=== PATIENT | male | born 1990 | race Caucasian/White ===

== ENCOUNTER 2021-01-09 11:30 | Emergency (ER) | payer OTHER ==
[2021-01-09 15:07] LABS: Absolute Lymphocytes (CBC) 0.8 K/uL (0.7-4.9); Basophils % 0.4 % (0-1.3); Hematocrit 42.7 % (39.6-49.0); Lymphocytes % 6.6 % (15.3-44.8); MPV 9.6 fL (7.6-11.3); RBC Red Blood Cell Count 5.19 M/uL (4.33-5.43)
--- NOTE | 2021-01-09 15:17 | RAD REPORT ---
EXAM DESCRIPTION: RAD - Chest Single View - 01/09/2021 2:35 pm CLINICAL HISTORY: CHEST PAIN Chest pain. COMPARISON: Chest Single View dated 04/26/2020; CHEST SINGLE VIEW dated 10/10/2013; CHEST SINGLE VIEW d ated 06/26/2013No comparisons FINDINGS: Portable technique limits examination quality. The lungs are grossly clear. The heart is normal in size. No displaced fractures. IMPRESSION: No acute intrathoracic process suspected.
[2021-01-09 15:27] LABS: ALT/SGPT 189 U/L (12-78); AST/SGOT 81 U/L (15-37); Albumin 4.1 g/dL (3.4-5.0); Alkaline Phosphatase 220 U/L (45-117); BUN Blood Urea Nitrogen 12 mg/dL (7-18); Bicarbonate 26 mmol/L (21-32); Bilirubin Direct 0.5 mg/dL (0-0.2); Glucose Level 86 mg/dL (74-106); Magnesium 2.1 mg/dL (1.8-2.4); NT PRO-BNP 52 pg/mL (<125); Potassium 3.8 mmol/L (3.5-5.1); Protein, Total 9.2 g/dL (6.4-8.2); Sodium Level 137 mmol/L (136-145); Troponin (Emerg Dept Use Only) < 0.02 ng/mL (0.0-0.045)
[2021-01-09 16:07] LABS: Blood Morphology Comment NOT SEEN (NOT SEEN); Platelet Estimate ADEQ; White Blood Cell Scan OK (OK)
[2021-01-09] MEDS ORDERED: CEFTRIAXONE/SWI 1gm 1 GM/10 ML SYR ONE (16:19)
[2021-01-09] MEDS ORDERED: LEVALBUTEROL 1.25 MG/3 ML NEB ONE (16:19)
[2021-01-09] MEDS ORDERED: IPRATROPIUM BROM 0.5MG/2.5ML ONE (16:19)
[2021-01-09] MEDS ORDERED: METHYLPREDNISOLONE 125 MG INJ ONE (16:19)
--- NOTE | 2021-01-09 16:21 | RAD REPORT ---
EXAM DESCRIPTION: CT - Chest For Pe Angio - 01/09/2021 4:04 pm CLINICAL HISTORY: Chest pain. Dyspnea;Cough COMPARISON: No comparisons TECHNIQUE: CT angiogram of the pulmonary arteries was performed with MIP. All CT scans are performed using dose optimization technique as appropriate and may include automated exposure control or mA/KV adjustment according to patient size. FINDINGS: No evidence of pulmonary thromboembolism. No acute aortic finding demonstrated. Mild ground-glass opacities both lungs likely infection related. No significant pericardial or pleural fluid. No concerning bony finding. IMPRESSION: No evidence of pulmonary thromboembolism. Mild viral pneumonitis pattern suspected.
--- NOTE | 2021-01-09 16:21 | ER ---
Nurse's Notes [facility] Name: Shahid Ybarra Age: 30 yrs Sex: Male : 1990 Arrival Date: 01/09/2021 Time: 11:31 Bed 15 Private MD: Diagnosis: Essential (primary) hypertension;Chest pain, unspecified;Bronchitis, not specified as acute or chronic;Acute upper respiratory infection, unspecified Presentation: 01/09 11:36 Chief complaint: Patient states: SOB and cough for 1 week. Mid chest pressure for 2 ss days intermittent. No fever, but feels sweaty and hot. Covid test negative. Coronavirus screen: Client denies travel out of the [place] in the last 14 days. chills, cough unrelated to allergies, difficulty breathing, fatigue, fever, headache, muscle pain, shaking with chills, shortness of breath, Client presents with at least one sign or symptom that may indicate coronavirus-19. Standard/surgical mask placed on the client. Ebola Screen: Patient denies travel to an Ebola-affected area in the 21 days before illness onset. Initial Sepsis Screen:. Initial Sepsis Screen: Does the patient meet any 2 criteria? No. Patient's initial sepsis screen is negative. Does the patient have a suspected source of infection? Yes: Productive cough/pneumonia. Risk Assessment: Do you want to hurt yourself or someone else? Patient reports no desire to harm self or others. Onset of symptoms was January 03, 2021. 11:36 Method Of Arrival: Ambulatory ss 11:36 Acuity: MARCIO 2 ss Historical: - Allergies: 11:41 No Known Drug Allergies; ss - PMHx: 11:41 Hypertension; ss - PSHx: 11:41 None; ss - Immunization history:: Flu vaccine is not up to date. - Social history:: Smoking status: Reported history of juuling and/or vaping. Patient denies any tobacco usage or history of. Screenin:28 Abuse screen: Denies threats or abuse. Denies injuries from another. Nutritional ss screening: No deficits noted. Tuberculosis screening: Never had TB. Fall Risk None identified. Assessment: 14:15 General: Behavior is calm, cooperative. Pain: Complains of pain in chest Pain currently ss is 6 out of 10 on a pain scale. Quality of pain is described as aching, Pain began 2-3 days ago. Is continuous. Neuro: Level of Consciousness is awake, alert, obeys commands, Oriented to person, place, time, situation, Bladder Trimmer are equal bilaterally Moves all extremities. Full function Gait is steady, Speech is normal. Cardiovascular: Capillary refill < 3 seconds is brisk in bilateral fingers Patient's skin is warm and dry. Rhythm is regular. Respiratory: Reports cough that is dry, hacking, persistent Airway is patent Respiratory effort is even, unlabored, Respiratory pattern is regular, symmetrical, Breath sounds are clear bilaterally. GI: Patient currently denies diarrhea, nausea, vomiting. : Denies burning with urination. EENT: Nares are clear Oral mucosa is dry. Derm: Skin is intact, is healthy with good turgor, Skin is dry, Skin is pink, warm \T\ dry. normal. Musculoskeletal: Circulation, motion, and sensation intact. Range of motion: intact in all extremities, Swelling absent. 16:20 Reassessment: Pt back from CT at this time. ss 16:28 Reassessment: Patient and/or family updated on plan of care and expected duration. Pain ss level reassessed. Awaiting for Zithromax to come from pharmacy. 16:36 Reassessment: Pt up for discharge. Awaiting for patient to finish breathing treatment ss and IV antibiotics. Vital Signs: 11:36 BP 182 / 103; Pulse 80; Resp 18; Temp 98.3; Pulse Ox 97% ; Weight 140.61 kg; Height 6 ss ft. 4 in. (193.04 cm); Pain 6/10; 16:38 BP 124 / 95; Pulse 92; Resp 18; Pulse Ox 97% on R/A; ss 17:00 BP 150 / 87; Pulse 103; Resp 22; Pulse Ox 99% on R/A; vg1 11:36 Body Mass Index 37.73 (140.61 kg, 193.04 cm) ss ED Course: 11:31 Patient arrived in ED. ds1 11:39 Triage completed. ss 11:41 Arm band placed on. ss 14:07 Grey Liang MD is Attending Physician. laura 14:35 XRAY Chest (1 view) In Process Unspecified. EDMS 14:50 EKG done, by ED staff, reviewed by Grey Liang MD X-ray(s) taken. Patient maintains jp3 SpO2 saturation greater than 95% on room air. 14:55 Inserted saline lock: 20 gauge in left antecubital area, using aseptic technique. Blood jp3 collected. 14:55 Initial lab(s) drawn, by me, sent to lab. jp3 16:04 CT Chest For PE Angio In Process Unspecified. EDMS 16:19 Moi Garrett MD is Referral Physician. [facility] 16:19 Timoteo Prakash MD is Referral Physician. [facility] 16:27 Mariza Pollock, JANIE is Primary Nurse. ss 16:28 Patient has correct armband on for positive identification. Bed in low position. Call ss light in reach. Side rails up X 1. Pulse ox on. NIBP on. Warm blanket given. 18:23 No provider procedures requiring assistance completed. IV discontinued, intact, ss bleeding controlled, No redness/swelling at site. Pressure dressing applied. Administered Medications: 16:22 Drug: SOLU-Medrol (methylPrednisoLONE) 125 mg Route: IVP; Site: left antecubital; ss 18:23 Follow up: Response: No adverse reaction ss 16:26 Drug: Xopenex (levalbuterol) 1.25 mg Route: Inhalation; ss 16:26 Drug: Rocephin (cefTRIAXone) 1 grams Route: IV; Rate: per protocol; Site: left ss antecubital; 16:28 Follow up: IV Status: Completed infusion ss 16:26 Drug: AtroVENT (ipratropium) Aerosol 0.5 mg Route: Inhalation; ss 16:28 CANCELLED (Duplicate Order): predniSONE 40 mg PO once [facility] 16:59 Drug: Norvasc (amlodipine) 5 mg Route: PO; vg1 17:10 Follow up: Response: No adverse reaction 16:59 Drug: Pepcid (famotidine) 20 mg Route: IVP; Site: left antecubital; vg1 17:10 Follow up: Response: No adverse reaction 17:00 Drug: Decadron - Dexamethasone 10 mg Route: IVP; Site: left antecubital; vg1 17:10 Follow up: Response: No adverse reaction ss 17:01 Drug: Zithromax (azithromycin) 500 mg Route: IVPB; Infused Over: 1 hrs; Site: left vg1 antecubital; 18:05 Follow up: IV Status: Completed infusion ss 17:17 Drug: Aspirin Chewable Tablet 324 mg Route: PO; vg1 Outcome: 16:20 Discharge ordered by . laura 18:23 Discharged to home ambulatory, with family. 18:23 Condition: good 18:23 Discharge instructions given to patient, family, Instructed on discharge instructions, follow up and referral plans. medication usage, Demonstrated understanding of instructions, follow-up care, medications, Prescriptions given X x5 18:25 Patient left the ED. Signatures: Dispatcher [employer] EDPA Grey Liang MD MD cha Sanford, Demi ds1 Mariza Pollock, RN RN Gary Carter jp3 Beata Davis, RN RN vg1
--- NOTE | 2021-01-09 16:21 | EDPHYS ---
Physician Documentation [facility] Name: Shahid Ybarra Age: 30 yrs Sex: Male : 1990 Arrival Date: 01/09/2021 Time: 11:31 Bed 15 Private MD: ED Physician Grey Liang HPI: 01/09 15:17 This 30 yrs old Male presents to ER via Ambulatory with complaints of laura Shortness Of Breath, Chest Pain. 15:17 The patient has shortness of breath at rest, with light activity. Onset: The laura symptoms/episode began/occurred 7 day(s) ago. Duration: The symptoms are continuous, and are steadily getting worse. The patient's shortness of breath is aggravated by coughing, supine position, is alleviated by elevating head, application of supplemental oxygen. Associated signs and symptoms: The patient has no apparent associated signs or symptoms. Severity of symptoms: At their worst the symptoms were mild in the emergency department the symptoms are unchanged. The patient has not experienced similar symptoms in the past. Historical: - Allergies: 11:41 No Known Drug Allergies; ss - PMHx: 11:41 Hypertension; ss - PSHx: 11:41 None; ss - Immunization history:: Flu vaccine is not up to date. - Social history:: Smoking status: Reported history of juuling and/or vaping. Patient denies any tobacco usage or history of. ROS: 15:46 Constitutional: Negative for fever, chills, and weight loss, Eyes: Negative for injury, laura pain, redness, and discharge, ENT: Negative for injury, pain, and discharge, Neck: Negative for injury, pain, and swelling, Abdomen/GI: Negative for abdominal pain, nausea, vomiting, diarrhea, and constipation, Back: Negative for injury and pain, : Negative for injury, bleeding, discharge, and swelling, MS/Extremity: Negative for injury and deformity, Skin: Negative for injury, rash, and discoloration, Neuro: Negative for headache, weakness, numbness, tingling, and seizure, Psych: Negative for depression, anxiety, suicide ideation, homicidal ideation, and hallucinations, Allergy/Immunology: Negative for hives, rash, and allergies, Endocrine: Negative for neck swelling, polydipsia, polyuria, polyphagia, and marked weight changes, Hematologic/Lymphatic: Negative for swollen nodes, abnormal bleeding, and unusual bruising. 15:46 Cardiovascular: Positive for chest pain, with cough, with movement. 15:46 Respiratory: Positive for cough, shortness of breath, wheezing, expiratory. Exam: 15:46 Constitutional: This is a well developed, well nourished patient who is awake, alert, laura and in no acute distress. Head/Face: Normocephalic, atraumatic. Eyes: Pupils equal round and reactive to light, extra-ocular motions intact. Lids and lashes normal. Conjunctiva and sclera are non-icteric and not injected. Cornea within normal limits. Periorbital areas with no swelling, redness, or edema. ENT: Nares patent. No nasal discharge, no septal abnormalities noted. Tympanic membranes are normal and external auditory canals are clear. Oropharynx with no redness, swelling, or masses, exudates, or evidence of obstruction, uvula midline. Mucous membranes moist. Neck: Trachea midline, no thyromegaly or masses palpated, and no cervical lymphadenopathy. Supple, full range of motion without nuchal rigidity, or vertebral point tenderness. No Meningismus. Chest/axilla: Normal chest wall appearance and motion. Nontender with no deformity. No lesions are appreciated. Cardiovascular: Regular rate and rhythm with a normal S1 and S2. No gallops, murmurs, or rubs. Normal PMI, no JVD. No pulse deficits. Abdomen/GI: Soft, non-tender, with normal bowel sounds. No distension or tympany. No guarding or rebound. No evidence of tenderness throughout. Back: No spinal tenderness. No costovertebral tenderness. Full range of motion. Male : Normal genitalia with no discharge or lesions. Skin: Warm, dry with normal turgor. Normal color with no rashes, no lesions, and no evidence of cellulitis. MS/ Extremity: Pulses equal, no cyanosis. Neurovascular intact. Full, normal range of motion. Neuro: Awake and alert, GCS 15, oriented to person, place, time, and situation. Cranial nerves II-XII grossly intact. Motor strength 5/5 in all extremities. Sensory grossly intact. Cerebellar exam normal. Normal gait. Psych: Awake, alert, with orientation to person, place and time. Behavior, mood, and affect are within normal limits. 15:46 Respiratory: the patient does not display signs of respiratory distress, Respirations: normal, no acute changes, is not noted, Breath sounds: bronchial sounds, that are mild, are scattered, wheezing: expiratory 15:46 Musculoskeletal/extremity: DVT Exam: No signs of deep vein thrombosis. no pain, no swelling, no tenderness, negative Homans' sign noted on exam, no appreciated bluish discoloration, no erythema, no increased warmth. Vital Signs: 11:36 BP 182 / 103; Pulse 80; Resp 18; Temp 98.3; Pulse Ox 97% ; Weight 140.61 kg; Height 6 ss ft. 4 in. (193.04 cm); Pain 6/10; 16:38 BP 124 / 95; Pulse 92; Resp 18; Pulse Ox 97% on R/A; ss 17:00 BP 150 / 87; Pulse 103; Resp 22; Pulse Ox 99% on R/A; vg1 11:36 Body Mass Index 37.73 (140.61 kg, 193.04 cm) ss MDM: 14:07 Patient medically screened. laura 15:48 Differential diagnosis: Bronchitis CHF exacerbation, abnormal EKG, anxiety, coronary laura artery disease chest wall pain, Cholelithiasis pneumonia, pulmonary embolus, stable angina, unstable angina, pneumonia, pulmonary edema, Pulmonary Embolism reactive airway disease. Antibiotic administration: The patient is discharged and will get outpatient antibiotics, Zithromax. HEART Score: History: Slightly Suspicious (0), ECG: Normal (0), Age: < or = 45 years (0), Risk Factors: No Risk Factors Known (0), Troponin: < or = 1 x Normal Limit (0). The patient's Wells Deep Vein Thrombosis Score was calculated as follows: Total Score: 0. This patient was found to be at low risk for a deep vein thrombosis by using the Well's assessment criteria Total Score: 0-2 Pts- Low Risk. The patient's pulmonary embolism risk score was calculated as follows: Total Score: 0-2 points. This patient was found to be at low risk for a pulmonary embolism by using the Well's assessment criteria Total Score: 0-2 points. This patient was found to be at low risk for a pulmonary embolism by using the Well's assessment criteria. KRYSTA Risk Score: TOTAL SCORE = 0. Immunization status:. Data reviewed: vital signs, nurses notes, lab test result(s), EKG, radiologic studies, CT scan, plain films. Data interpreted: director of revenue cycle management: rate is 80 beats/min, rhythm is regular, Pulse oximetry: on room air is 97 %. Test interpretation: by ED physician or midlevel provider: ECG, plain radiologic studies. 01/09 14:08 Order name: Basic Metabolic Panel; Complete Time: 16:15 [facility] 01/09 14:08 Order name: CBC with Diff; Complete Time: 16:15 [facility] 01/09 14:08 Order name: LFT's; Complete Time: 16:15 [facility] 01/09 14:08 Order name: Magnesium; Complete Time: 16:15 [facility] 01/09 14:08 Order name: NT PRO-BNP; Complete Time: 16:15 [facility] 01/09 14:08 Order name: Troponin (emerg Dept Use Only); Complete Time: 16:15 [facility] 01/09 14:08 Order name: XRAY Chest (1 view); Complete Time: 16:15 [facility] 01/09 14:37 Order name: D-Dimer [facility] 01/09 14:37 Order name: D-Dimer; Complete Time: 16:15 [facility] 01/09 15:12 Order name: CBC Smear Scan; Complete Time: 16:15 [facility] 01/09 15:17 Order name: CT Chest For PE Angio; Complete Time: 16:23 [facility] 01/09 13:01 Order name: EKG; Complete Time: 13:01 [facility] 01/09 13:01 Order name: EKG - Nurse/Tech; Complete Time: 13:01 [facility] 01/09 14:08 Order name: Cardiac monitoring; Complete Time: 15:11 [facility] 01/09 14:08 Order name: IV Saline Lock; Complete Time: 15:11 [facility] 01/09 14:08 Order name: Labs collected and sent; Complete Time: 15:11 [facility] 01/09 14:08 Order name: O2 Per Protocol; Complete Time: 15:11 [facility] 01/09 14:08 Order name: O2 Sat Monitoring; Complete Time: 15:11 [facility] Administered Medications: 16:22 Drug: SOLU-Medrol (methylPrednisoLONE) 125 mg Route: IVP; Site: left antecubital; ss 18:23 Follow up: Response: No adverse reaction ss 16:26 Drug: Xopenex (levalbuterol) 1.25 mg Route: Inhalation; ss 16:26 Drug: Rocephin (cefTRIAXone) 1 grams Route: IV; Rate: per protocol; Site: left ss antecubital; 16:28 Follow up: IV Status: Completed infusion ss 16:26 Drug: AtroVENT (ipratropium) Aerosol 0.5 mg Route: Inhalation; 16:28 CANCELLED (Duplicate Order): predniSONE 40 mg PO once laura 16:59 Drug: Norvasc (amlodipine) 5 mg Route: PO; vg1 17:10 Follow up: Response: No adverse reaction ss 16:59 Drug: Pepcid (famotidine) 20 mg Route: IVP; Site: left antecubital; vg1 17:10 Follow up: Response: No adverse reaction ss 17:00 Drug: Decadron - Dexamethasone 10 mg Route: IVP; Site: left antecubital; vg1 17:10 Follow up: Response: No adverse reaction ss 17:01 Drug: Zithromax (azithromycin) 500 mg Route: IVPB; Infused Over: 1 hrs; Site: left vg1 antecubital; 18:05 Follow up: IV Status: Completed infusion ss 17:17 Drug: Aspirin Chewable Tablet 324 mg Route: PO; vg1 Disposition: 01/09/21 16:20 Discharged to Home. Impression: Essential (primary) hypertension, Chest pain, unspecified, Bronchitis, not specified as acute or chronic, Acute upper respiratory infection, unspecified. - Condition is Stable. - Discharge Instructions: Acute Bronchitis, Adult, Nonspecific Chest Pain, Hypertension, Upper Respiratory Infection, Adult, Nonspecific Chest Pain, [id number], Hypertension, [id number], Cough, Adult, Sldx-to-Hlyy, Aspirin and Your Heart, Cough, Adult, Managing Your Hypertension. - Prescriptions for Norvasc 5 mg Oral Tablet - take 1 tablet by ORAL route once daily; 20 tablet. Pepcid 20 mg Oral Tablet - take 1 tablet by ORAL route every 12 hours for 10 days; 20 tablet. Albuterol Sulfate 90 mcg/actuation Inhalation - inhale 2 puff by INHALATION route every 4-6 hours; 1 Inhaler. Zithromax 500 mg Oral Tablet - take 1 tablet by ORAL route once daily for 5 days; 5 tablet. dexamethasone 2 mg Oral tablet - take 1 tablet by ORAL route 3 times per day; 15 tablet. - Medication Reconciliation Form, Thank You Letter, Antibiotic Education, Prescription Opioid Use, Work release form form. - Follow up: Private Physician; When: 2 - 3 days; Reason: Recheck today's complaints, Continuance of care, Re-evaluation by your physician. Follow up: Moi Garrett MD; When: 2 - 3 days; Reason: Recheck today's complaints, Re-evaluation by your physician. Follow up: Timoteo Prakash MD; When: 2 - 3 days; Reason: Recheck today's complaints, Re-evaluation by your physician. - Problem is new. - Symptoms have improved. Signatures: Dispatcher [employer] EDKY Grey Liang MD MD cha Smirch, Shelby RN RN ss Beata Davis, RN RN vg1 Mark Hernandez RN RN ll1 Corrections: (The following items were deleted from the chart) 15:11 14:37 CORONAVIRUS ordered. [facility] 16:28 16:18 predniSONE 40 mg PO once ordered. [facility] 16:29 16:20 01/09/2021 16:20 Discharged to Home. Impression: Essential (primary) laura hypertension; Chest pain, unspecified; Bronchitis, not specified as acute or chronic. Condition is Stable. Forms are Medication Reconciliation Form, Thank You Letter, Antibiotic Education, Prescription Opioid Use. Follow up: Private Physician; When: 2 - 3 days; Reason: Recheck today's complaints, Continuance of care, Re-evaluation by your physician. Follow up: Moi Garrett; When: 2 - 3 days; Reason: Recheck today's complaints, Re-evaluation by your physician. Follow up: Timoteo Prakash; When: 2 - 3 days; Reason: Recheck today's complaints, Re-evaluation by your physician. Problem is new. Symptoms have improved. [facility] 18:25 16:29 01/09/2021 16:20 Discharged to Home. Impression: Essential (primary) ss hypertension; Chest pain, unspecified; Bronchitis, not specified as acute or chronic; Acute upper respiratory infection, unspecified. Condition is Stable. Discharge Instructions: Nonspecific Chest Pain, Hypertension, Upper Respiratory Infection, Adult, Nonspecific Chest Pain, [id number]-[id number], Hypertension, [id number], Cough, Adult, Ppfa-[id number], Aspirin and Your Heart, Cough, Adult, Managing Your Hypertension. Prescriptions for Norvasc 5 mg Oral Tablet - take 1 tablet by ORAL route once daily; 20 tablet, Pepcid 20 mg Oral Tablet - take 1 tablet by ORAL route every 12 hours for 10 days; 20 tablet, Albuterol Sulfate 90 mcg/actuation Inhalation - inhale 2 puff by INHALATION route every 4-6 hours; 1 Inhaler, Zithromax 500 mg Oral Tablet - take 1 tablet by ORAL route once daily for 4 days; 4 tablet. and Forms are Medication Reconciliation Form, Thank You Letter, Antibiotic Education, Prescription Opioid Use. Follow up: Private Physician; When: 2 - 3 days; Reason: Recheck today's complaints, Continuance of care, Re-evaluation by your physician. Follow up: Moi Garrett; When: 2 - 3 days; Reason: Recheck today's complaints, Re-evaluation by your physician. Follow up: Timoteo Prakash; When: 2 - 3 days; Reason: Recheck today's complaints, Re-evaluation by your physician. Problem is new. Symptoms have improved. laura
[2021-01-09] MEDS ORDERED: AMLODIPINE 5 MG TAB ONE (16:59)
[2021-01-09] MEDS ORDERED: dexAMETHasone 10 MG/ML VIAL ONE (16:59)
[2021-01-09] MEDS ORDERED: AZITHROMYCIN 500 MG INJ IVPB ONE (17:00)
[2021-01-09] MEDS ORDERED: FAMOTIDINE 20 MG/2 ML VIAL IV ONE (17:00)
[2021-01-09] MEDS ORDERED: NA CHLORIDE 0.9% 250 ML ONE (17:00)
[2021-01-09] MEDS ORDERED: AZITHROMYCIN IV 500 MG in NA CHLORIDE 0.9% 250 ML IVPB ONE (17:00)
[2021-01-09] MEDS ORDERED: ASPIRIN 81 MG CHEWABLE TABLET ONE (17:24)
[2021-01-09 18:45] VITALS: TEMP 98.3
[2021-01-09 18:48] VITALS: BP 150/87; O2SAT 99
--- NOTE | 2021-01-10 08:17 | EKG ---
Test Date: 2021-01-09 Test Time: 11:44:32 Firewood Cutter: REED MEASUREMENT RESULTS: Intervals: Rate: 84 LA: 154 QRSD: 86 QT: 340 QTc: 401 [place]: P: 64 LA: 154 QRS: 58 T: 2 INTERPRETIVE STATEMENTS: Normal sinus rhythm Normal ECG No previous ECG available for comparison Electronically Signed On 01-10-21 08:15:33 CDT by Timoteo Prakash
== END 2021-01-09 18:25 | disposition home or self-care (01) ==
LOC: ER 11:30
DX: J40 Bronchitis, not specified as acute or chronic (principal); J06.9 Acute upper respiratory infection, unspecified; I10 Essential (primary) hypertension
CPT/HCPCS: 96365; 93005; 85025; 80048; 36415; 83735; 85379; 80076; 84484; 83880; 71275; 71045; 96375; 99285; Q9967; J0456 ×2; J1100; J0696; J7050 ×2; J2930

== ENCOUNTER 2025-01-13 18:18 | Emergency (ER) | payer OTHER ==
[2025-01-13] MEDS ORDERED: KETOROLAC 30 MG/ML INJ ONE (19:12)
[2025-01-13] MEDS ORDERED: LACTULOSE 20 GM/30 ML UCUP ONE (19:13)
[2025-01-13] MEDS ORDERED: HYDROCODONE/APAP 7.5/325 MG TAB ONE (19:13)
--- NOTE | 2025-01-13 20:57 | EDPHYS ---
Physician Documentation [facility] Name: Shahid Ybarra Age: 34 yrs Sex: Male : 1990 Arrival Date: 01/13/2025 Time: 18:18 Bed 19 Private MD: ED Physician Spencer Zamora HPI: 01/13 19:15 This 34 yrs old Male presents to ER via Ambulatory with complaints of Rectal Pain. sb4 19:16 The patient presents to the emergency department with pain in the rectal area, that is sb4 moderate. Onset: The symptoms/episode began/occurred gradually, and became worse today. Context: the patient has a known history of hemorrhoids. Rectal pain for several months now, has gotten was worse over the past few days. States he had a colonoscopy about 3 months ago and was told everything was within normal limits except for internal hemorrhoids. He states that the pain has become increasingly worse, he states he can barely ride in a car without any pain. Reports mild bleeding. Has not had a BM in 3 days due to the pain. Historical: - Allergies: 18:43 No Known Allergies; ld1 - PMHx: 18:43 Hypertension; ld1 - PSHx: 18:43 None; ld1 - Immunization history:: Adult Immunizations up to date. - Infectious Disease History:: Denies. - Social history:: Smoking status: Patient denies any tobacco usage or history of. ROS: 19:16 Constitutional: Negative for fever, chills, and weight loss, sb4 19:16 Abdomen/GI: Positive for rectal pain, 19:16 All other systems are negative, Exam: 19:16 Head/Face: Normocephalic, atraumatic. Eyes: Extra-ocular motions intact. Periorbital sb4 areas with no swelling, redness, or edema. ENT: Mucous membranes moist. Cardiovascular: Regular rate and rhythm with a normal S1 and S2. Respiratory: No increased work of breathing, no retractions or nasal flaring. Abdomen/GI: Soft, non-tender, no distension. Skin: Warm, dry with normal turgor. Normal color with no rashes, no lesions, and no evidence of cellulitis. 19:16 Constitutional: The patient appears alert, awake, uncomfortable, Vital Signs: 18:45 BP 155 / 89; Pulse 68; Resp 18; Temp 97.5(TE); Pulse Ox 99% on R/A; Weight 122.47 kg; ld1 Height 6 ft. 4 in. ; Pain 10/10; 19:30 BP 139 / 64; Pulse 64; Resp 18; Pulse Ox 98% on R/A; Pain 9/10; rg5 20:30 BP 100 / 57; Pulse 60; Resp 18; Pulse Ox 98% ; Pain 2/10; rg5 18:45 Body Mass Index 32.87 (122.47 kg, 193.04 cm) ld1 18:45 Pain Scale: Adult ld1 19:30 Pain Scale: Adult rg5 20:30 Pain Scale: Adult rg5 MDM: 18:31 Medical Screening Exam initiated sb4 20:56 Data reviewed: vital signs, nurses notes, and as a result, I will discharge patient. sb4 Counseling: I had a detailed discussion with the patient and/or guardian regarding the historical points, exam findings, and any diagnostic results supporting the discharge/admit diagnosis, the need for outpatient follow up, for definitive care, to return to the emergency department if symptoms worsen or persist or if there are any questions or concerns that arise at home. Administered Medications: 19:29 Drug: Lactulose PO 20 grams 30 ml PO once Volume: 30 ml; Route: PO; rg5 20:17 Follow up: Response: No adverse reaction; Pain is decreased rg5 19:29 Drug: Ketorolac IM 30 mg IM once Route: IM; Site: right deltoid; rg5 20:17 Follow up: Response: No adverse reaction rg5 19:29 Drug: Hydrocodone-Acetaminophen PO (7.5 mg-325 mg) 1 tabs PO once Route: PO; rg5 20:17 Follow up: Response: No adverse reaction rg5 Disposition: 01/14 16:11 Co-signature as Attending Physician, Spencer Zamora MD I reviewed the patient's care rn provided by the Advanced Practice Provider and agree with the diagnosis and treatment plan. Disposition Summary: 01/13/25 20:57 Discharge Ordered Notes: Location: Home sb4 Problem: an ongoing problem sb4 Symptoms: have improved sb4 Condition: Stable sb4 Diagnosis - Rectal pain secondary to hemorrhoids sb4 Followup: sb4 - With: Luke Herr MD - When: 1 week - Reason: Recheck today's complaints, Re-evaluation by your physician Discharge Instructions: - Discharge Summary Sheet sb4 - How to Take a Sitz Bath sb4 - Hemorrhoids, [id number] sb4 - Surgical Procedures for Hemorrhoids sb4 Forms: - Patient Portal Instructions sb4 - Leadership Thank You Letter sb4 Prescriptions: - ketorolac 10 mg Oral tablet - take 1 tablet ORAL route every 6 hours as needed for pain; maximum total sb4 duration of 5 days; 15 tablet; Refills: 0, Product Selection Permitted - Colace 100 mg Oral Tablet - take 1 tablet ORAL route every 12 hours; 14 tablet; Refills: 0, Product sb4 Selection Permitted Signatures: Spencer Zamora MD MD rn Sims, Lauren RN RN ld1 Shaunna Aguirre PA-C PAPrasad sb4 Anthony Rosenthal, RN RN rg5
--- NOTE | 2025-01-13 20:57 | ER ---
Nurse's Notes [facility] Name: Shahid Ybarra Age: 34 yrs Sex: Male : 1990 Arrival Date: 01/13/2025 Time: 18:18 Bed 19 Private MD: Diagnosis: Rectal pain secondary to hemorrhoids Presentation: 01/13 18:45 Chief complaint: Patient states: Rectal pain getting worse X 2 months. Pt denies ld1 difficulty using bathroom. States "It is difficult to even ride in a car I hurt so bad.". Coronavirus screen: At this time, the client does not indicate any symptoms associated with coronavirus-19. Ebola Screen: No symptoms or risks identified at this time. Initial Sepsis Screen: Does the patient meet any 2 criteria? No. Patient's initial sepsis screen is negative. Does the patient have a suspected source of infection? No. Patient's initial sepsis screen is negative. Risk Assessment: Do you want to hurt yourself or someone else? Patient reports no desire to harm self or others. Onset of symptoms was January 13, 2025. 18:45 Method Of Arrival: Ambulatory ld1 18:45 Acuity: MARCIO 4 ld1 Triage Assessment: 18:45 General: Appears in no apparent distress. uncomfortable, Behavior is calm, cooperative, ld1 appropriate for age. Pain: Complains of pain in buttocks Pain does not radiate. Pain currently is 10 out of 10 on a pain scale. Quality of pain is described as throbbing, Pain began 2 months Is continuous. EENT: No signs and/or symptoms were reported regarding the EENT system. Neuro: Level of Consciousness is awake, alert, obeys commands, Oriented to person, place, time, situation. Cardiovascular: Capillary refill < 3 seconds Patient's skin is warm and dry. Respiratory: Airway is patent Respiratory effort is even, unlabored. GI: Abdomen is round non-distended. : No signs and/or symptoms were reported regarding the genitourinary system. Derm: No signs and/or symptoms reported regarding the dermatologic system. Musculoskeletal: No signs and/or symptoms reported regarding the musculoskeletal system. Historical: - Allergies: 18:43 No Known Allergies; ld1 - PMHx: 18:43 Hypertension; ld1 - PSHx: 18:43 None; ld1 - Immunization history:: Adult Immunizations up to date. - Infectious Disease History:: Denies. - Social history:: Smoking status: Patient denies any tobacco usage or history of. Screenin:45 [facility] ED Fall Risk Assessment (Adult) History of falling in the last 3 months, bp including since admission No falls in past 3 months (0 pts) Confusion or Disorientation No (0 pts) Intoxicated or Sedated No (0 pts) Impaired Gait No (0 pts) Mobility Assist Device Used No (0 pt) Altered Elimination No (0 pt) Score/Fall Risk Level 0 - 2 = Low Risk Oriented to surroundings. Abuse screen: Denies threats or abuse. Denies injuries from another. Nutritional screening: No deficits noted. Tuberculosis screening: No symptoms or risk factors identified. Assessment: 18:45 General: Appears in no apparent distress. uncomfortable, Behavior is calm, cooperative, bp appropriate for age. Pain: Complains of pain in buttocks. 19:40 General: Appears in no apparent distress. uncomfortable, Behavior is calm, cooperative, rg5 appropriate for age. Pain: Complains of pain in abdomen Pain currently is 9 out of 10 on a pain scale. Quality of pain is described as aching. Neuro: Level of Consciousness is awake, alert, obeys commands, Oriented to person, place, time, situation. Cardiovascular: Patient's skin is warm and dry. Respiratory: Airway is patent Trachea midline Respiratory effort is even, unlabored, Respiratory pattern is regular, symmetrical. GI: Abdomen is round non-distended, Reports constipation. : No signs and/or symptoms were reported regarding the genitourinary system. EENT: No deficits noted. Derm: Skin is intact, Skin is dry, Skin is normal, Skin temperature is warm. Musculoskeletal: Circulation, motion, and sensation intact. Range of motion: intact in all extremities. 20:30 Reassessment: No changes from previously documented assessment. Patient and/or family rg5 updated on plan of care and expected duration. Pain level reassessed. Patient is alert, oriented x 3, equal unlabored respirations, skin warm/dry/pink. 21:17 Reassessment: No changes from previously documented assessment. Patient and/or family rg5 updated on plan of care and expected duration. Pain level reassessed. Patient is alert, oriented x 3, equal unlabored respirations, skin warm/dry/pink. Patient states symptoms have improved. Vital Signs: 18:45 BP 155 / 89; Pulse 68; Resp 18; Temp 97.5(TE); Pulse Ox 99% on R/A; Weight 122.47 kg; ld1 Height 6 ft. 4 in. ; Pain 10/10; 19:30 BP 139 / 64; Pulse 64; Resp 18; Pulse Ox 98% on R/A; Pain 9/10; rg5 20:30 BP 100 / 57; Pulse 60; Resp 18; Pulse Ox 98% ; Pain 2/10; rg5 18:45 Body Mass Index 32.87 (122.47 kg, 193.04 cm) ld1 18:45 Pain Scale: Adult ld1 19:30 Pain Scale: Adult rg5 20:30 Pain Scale: Adult rg5 ED Course: 18:20 Patient arrived in ED. mr 18:28 Shaunna Aguirre PA-C is PHCP. sb4 18:28 Spencer Zamora MD is Attending Physician. sb4 18:45 Arm band placed on right wrist. ld1 18:45 Patient has correct armband on for positive identification. bp 18:46 Triage completed. ld1 18:50 Moris Jain, RN is Primary Nurse. bp 19:10 No provider procedures requiring assistance completed. rg5 19:10 Patient did not have IV access during this emergency room visit. rg5 20:56 Luke Herr MD is Referral Physician. sb4 21:21 Provided Education on: post er care. rg5 Administered Medications: 19:29 Drug: Lactulose PO 20 grams 30 ml PO once Volume: 30 ml; Route: PO; rg5 20:17 Follow up: Response: No adverse reaction; Pain is decreased rg5 19:29 Drug: Ketorolac IM 30 mg IM once Route: IM; Site: right deltoid; rg5 20:17 Follow up: Response: No adverse reaction rg5 19:29 Drug: Hydrocodone-Acetaminophen PO (7.5 mg-325 mg) 1 tabs PO once Route: PO; rg5 20:17 Follow up: Response: No adverse reaction rg5 Medication: 18:45 VIS not applicable for this client. bp Outcome: 20:57 Discharge ordered by . sb4 21:21 Discharged to home ambulatory, rg5 21:21 Condition: stable 21:21 Instructed on discharge instructions, follow up and referral plans. Demonstrated understanding of instructions, follow-up care, medications, Prescriptions given X 2, 21:22 Patient left the ED. rg5 Signatures: Maddi Gage, Moris Duran, RN RN Leah Medina RN RN ld1 Shaunna Aguirre, PAPrasad PAPrasad sb4 Anthony Rosenthal RN RN rg5
[2025-01-14 21:40] VITALS: TEMP 97.5
[2025-01-14 21:41] VITALS: O2SAT 98
[2025-01-14 21:42] VITALS: BP 100/57
== END 2025-01-13 21:22 | disposition home or self-care (01) ==
LOC: ER 18:18
DX: K64.9 Unspecified hemorrhoids (principal)
CPT/HCPCS: 96372; 99284